=== PATIENT | female | born 1955 | race African-American/Black ===

== ENCOUNTER 2020-02-28 06:32 | Day surgery (SDC) | payer OTHER ==
[2020-02-27 16:21] LABS: Basophils % 0.4 % (0-1.3); Hematocrit 36.9 % (36.0-45.0); Lymphocytes % 29.5 % (15.3-44.8); MPV 8.1 fL (7.6-11.3); RBC Red Blood Cell Count 4.25 M/uL (3.86-4.86)
--- NOTE | 2020-02-27 16:30 | RAD REPORT ---
EXAM DESCRIPTION: Sandhya Kinsey And Freddy (2 Views)02/27/2020 4:12 pm CLINICAL HISTORY: preop COMPARISON: None FINDINGS: The lungs appear clear of acute infiltrate. The heart is normal size IMPRESSION: No acute abnormalities displayed
[~2020-02-28 06:32] MED LIST: CEFAZOLIN/SWI 1gm 1 GM/10 ML SYR IVP SCH
--- OUTSIDE RECORDS SUMMARY | 2020-02-28 06:35 | XMS REPORT | Summary of Care ---
:1955 Author Organization [facility] - Health Address [address] [place] [address] Care Team Providers Name Role Phone MD Federico Primary Care Provider Reason for Visit Auth/Cert Status Reason Specialty Diagnoses / Procedures Referred By [place]ble ontact Referred To Contact Surgery Procedures Adc Pre/Pacu/Post [facility] CODING [facility]P [address] [place] [address] LAP,[place] [address] CHOLECYSTECTOMY [address] - [place] Fax: LAP,CHOLECYSTECTOMY Encounter Details Date Type Department Care Team Description 01/03/2020 Hospital Encounter [facility] [address] [place] [address] Dr martínez [address] [place] [address] [address] [place] [phone] Allergies No Known Allergiesdocumented as of this encounter (statuses as of 01/03/2020) Medications Medication Sig Dispensed Refills Start Date End Date Status losartan 100 mg Take 100 mg by 0 Active tabletIndications: 1/2 mouth daily. in am 1/2 in pm Indications: 1/2 in am 1/2 in pm carvediloL 6.25 mg Take 6.25 mg by 0 Active tabletIndications: 1/2 mouth 2 (two) in am and 1/2 pm times daily with meals. Indications: 1/2 in am and 1/2 pm Pantoprazole 40 mg Take 40 mg by 0 Active delayed-release mouth daily. suspension acetaminophen (TYLENOL) Take by mouth 0 Active 325 mg tablet every 6 (six) hours as needed (as needed). acetaminophen-codeine Take 1 tablet 28 tablet 0 01/03/2020 Active 300-30 mg by mouth every tabletIndications: 4 (four) hours acute pain as needed for Pain (scale 4-6) or Pain (scale 7-10) for up to 7 days. Indications: acute pain documented as of this encounter (statuses as of 01/03/2020) Active Problems Not on filedocumented as of this encounter (statuses as of 01/03/2020) Social History Tobacco Use Types Packs/Day Years Used Date Never Smoker Smokeless Tobacco: Never Used Sex Assigned at Date Recorded Not on file Job Start Date Occupation Industry Not on file Not on file Not on file Travel History Travel Start Travel End No recent travel history available. COVID-19 Exposure Response Date Recorded In the last month, have you been in contact with No / Unsure 01/02/2020 10:00 AM CDT someone who was confirmed or suspected to have Coronavirus / COVID-19? documented as of this encounter Last Filed Vital Signs Vital Sign Reading Time Taken Comments Blood Pressure 140/82 01/03/2020 10:47 AM CDT Pulse 62 01/03/2020 10:47 AM CDT Temperature 36.8 C (98.2 F) 01/03/2020 10:10 AM CDT Respiratory Rate 16 01/03/2020 10:47 AM CDT Oxygen Saturation 98% 01/03/2020 10:47 AM CDT Inhaled Oxygen Concentration - - Weight 71.7 kg (158 lb) 01/01/2020 12:00 PM CDT Height 165.1 cm (5' 5") 01/01/2020 12:00 PM CDT Body Mass Index 26.29 01/01/2020 12:00 PM CDT documented in this encounter Discharge Instructions AttachmentsThe following attachments cannot be sent through Care Everywhere. Cholecystectomy (Icelandic)documented in this encounter Plan of Treatment Name Type Priority Associated Diagnoses Order S chedule EKG-12 LEAD ROUTINE HEART STATION STAT ONCE fo r 1 Occurrences sta rting 01/03/2020 unti l 01/03/2020 SURGICAL PATHOLOGY LAB Routine ONCE for 1 EXAM Occurrences sta rting 01/03/2020 Health Maintenance Due Date Last Done Comments HEPATITIS C (HCV) SCREEN 1955 DTaP,Tdap,and Td Vaccines (1 - 1968 Tdap) COLONOSCOPY 2007 Zoster Recombinant Vaccine 2007 (SHINGRIX) (1 of 2) Breast Cancer Screening 12/16/2009 12/16/2008 (MAMMOGRAM) PAP SMEAR 11/19/2011 11/18/2008 INFLUENZA VACCINE (#1) 2020 Depression Screening 01/02/2021 01/03/2020 PNEUMOCOCCAL 0-64 YEARS COMBINED Aged Out No longer eligible based on SERIES patient's age to complete this topic documented as of this encounter Procedures Procedure Name Priority Date/Time Associated Comments Diagnosis EKG-12 LEAD Routine 01/03/2020 6:45 AM CDT CBC WITH DIFF STAT 01/03/2020 6:32 AM Results for this CDT procedure are i n the results section. BASIC METABOLIC STAT 01/03/2020 6:31 AM Resul ts for this PANEL (NA, K, CL, CDT procedure are in CO2, GLUCOSE, BUN, the resul ts CREATININE, CA) section. HEPATIC FUNCTION STAT 01/03/2020 6:31 AM Resu lts for this PANEL (62260) CDT procedure are in (ALB,T.PRO,BILI the results T,BU/BC,ALT,AST,ALK section. PHOS) LIPASE STAT 01/03/2020 6:31 AM Results for this CDT procedure are i n the results section. AMYLASE STAT 01/03/2020 6:31 AM Results for this CDT procedure are i n the results section. CONSENT/REFUSAL FOR Routine 01/02/2020 9:58 AM DIAGNOSIS AND CDT TREATMENT ASSIGNMENT OF Routine 01/02/2020 9:58 AM BENEFITS CDT DSU PRE-OP Routine 12/31/2019 12:01 AM CDT documented in this encounter Results CBC WITH DIFF (01/03/2020 6:32 AM CDT) Pathologist Sig nature WBC 6.96 4.30 - 11.10 [facility] 10*3/L [facility] RBC 4.29 3.93 - 5.25 [facility] 10*6/L [facility] HGB 13.0 11.6 - 15.0 [facility] g/dL [facility] HCT 35.5 (L) 35.7 - 45.2 % [facility] MCV 82.8 80.6 - 95.5 fL [facility] MCH 30.3 25.9 - 32.8 pg [facility] MCHC 36.6 (H) 31.6 - 35.1 [facility] g/dL [facility] RDW-SD 39.2 39.0 - 49.9 fL [facility] RDW-CV 13.1 12.0 - 15.5 % [facility] PLT 307 166 - 358 [facility] 10*3/L [facility] MPV 9.4 (L) 9.5 - 12.9 fL [facility] NRBC/100 WBC 0.0 0.0 - 10.0 /100 [facility] WBCs [facility] NRBC x10^3 <0.01 10*3/L [facility] GRAN MAT (NEUT) % 63.2 % [facility] IMM GRAN % 0.10 % [facility] LYMPH % 25.4 % [facility] MONO % 10.2 % [facility] EOS % 1.0 % [facility] BASO % 0.1 % [facility] GRAN MAT x10^3(ANC) 4.39 1.88 - 7.09 [facility] 10*3/uL [facility] IMM GRAN x10^3 <0.03 0.00 - 0.06 [facility] 10*3/uL [facility] LYMPH x10^3 1.77 1.32 - 3.29 [facility] 10*3/uL [facility] MONO x10^3 0.71 0.33 - 0.92 [facility] 10*3/uL [facility] EOS x10^3 0.07 0.03 - 0.39 [facility] 10*3/uL [facility] BASO x10^3 <0.03 0.01 - 0.07 [facility] 10*3/uL [facility] Specimen Blood - ARM, LEFT Performing Organization Address City/State/Zipcode Phone Number [facility] CLIA: [id number], [address] [place], [place] [address] LIPASE (01/03/2020 6:31 AM CDT) Pathologist [facility] nature LIPASE 93 0 - 220 U/L [facility] Specimen Blood - ARM, LEFT Performing Organization Address [facility] Phone Number [facility] CLIA: [id number], [address] [place] [address] AMYLASE (01/03/2020 6:31 AM CDT) Pathologist Sig nature KRISTOFRE 103 35 - 110 U/L [facility] Specimen Blood - ARM, LEFT Performing Organization Address [facility] Phone Number [facility] CLIA: [id number], [address] [place] [address] HEPATIC FUNCTION PANEL ([id number]) (ALB,T.PRO,BILI T,BU/BC,ALT,AST,ALK PHOS) (01/03/2020 6:31 AM CDT) Pathologist Sig [facility] TOTAL BILI 0.6 0.1 - 1.1 mg/dL [facility] BILI UNCON 0.7 0.1 - 1.1 mg/dL [facility] BILI CONJ 0.0 0.0 - 0.3 mg/dL [facility] T PROTEIN 7.4 6.3 - 8.2 g/dL [facility] ALBUMIN 4.5 3.5 - 5.0 g/dL [facility] ALK PHOS 59 34 - 122 U/L [facility] ALTv 14 5 - 35 U/L [facility] AST(SGOT) 24 13 - 40 U/L [facility] Specimen Blood - ARM, LEFT Performing Organization Address [facility] Phone Number [facility] CLIA: [id number], [address] [place] [address] BASIC METABOLIC PANEL (NA, K, CL, CO2, GLUCOSE, BUN, CREATININE, CA) (01/03/2020 6:31 AM CDT) Pathologist Sig nature NA 141 135 - 145 mmol/L [facility] K 3.7 3.5 - 5.0 mmol/L [facility] CL 106 98 - 108 mmol/L [facility] CO2 TOTAL 28 23 - 31 mmol/L [facility] AGAP 7 2 - 16 [facility] BUN 18 7 - 23 mg/dL [facility] GLUCOSE 109 70 - 110 mg/dL [facility] CREATININE 0.96 0.50 - 1.04 [facility] mg/dL [facility] CALCIUM 9.6 8.6 - 10.6 mg/dL [facility] eGFR Calculation 58.9 mL/min/1.73m2 [facility] (Non-) [facility] eGFR Calculation 71.4 mL/min/1.73m2 [facility] () [facility] Specimen Blood - ARM, LEFT Narrative Performed At Association of Glomerular Filtration Rate (GFR) [facility] and Staging of Kidney Disease* + + +- + | GFR (mL/min/1.73 m2) | With Kidney Damage | Without Kidney Damage + + +- + | >90 | Stage one | Normal + + +- + | 60-89 | Stage two | Decreased GFR + + +- + | 30-59 | Stage three | Stage three + + +- + | 15-29 | Stage four | Stage four + + +- + | <15 (or dialysis) | Stage five | Stage five + + +- + *Each stage assumes the associated GFR level has been in effect for at least three months. Stages 1 to 5, with or without kidney disease, indicate chronic kidney disease. Notes: Determination of stages one and two (with eGFR >59mL/min/1.73 m2) requires estimation of kidney damage for at least three months as defined by structural or functional abnormalities of the kidney, manifested by either: Pathological abnormalities or Markers of kidney damage (including abnormalities in the composition of the blood or urine or abnormalities in imaging tests). Performing Organization Address City/State/Zipcode Phone Number [facility] CLIA: [id number], [address] [place], [place] [address] documented in this encounter Visit Diagnoses Diagnosis Cholecystitis - Primary Cholecystitis, unspecified documented in this encounter Administered Medications Medication Order MAR Action Action Date Dose Rate Site bupivacaine (preserv free) Given 01/03/2020 8:19 AM CDT 30 mL Abdomen 0.5% (SENSORCAINE MPF) 0.5 % (5 mg/mL) injection PRN, Starting Sandra 01/03/20 at 0819, Until Discontinued, Routine, Intra-op ceFAZolin (ANCEF) 1,000 mg in NaCl 0.9% (NS) 50 mL MINI-BAG 1,000 mg, IV Piggyback, O.R. HOLDING ONC E, 1 dose, Starting [facility] 01/03/20 at 0611, Until Discontinued, 50 mL, DSU Pre-op, Reason for Anti -Infective: Surgical Prophylaxis, Surgical Prophylaxis: Abdom inal, Duration of therapy: within 24 hours of surgery HYDROcodone-acetaminophen (NORCO 5) 5-32 5 mg tablet 1 tablet 1 tablet, Oral, PRN, 1 dose, Starting Sandra 01/03/20 at 0 921, Until Discontinued, Routine, Pain (scale 1-3), DSU Recovery HYDROcodone-acetaminophen (NORCO 5) 5-32 5 mg tablet 1 tablet 1 tablet, Oral, PRN, 1 dose, Starting [facility] 01/03/20 at 0 921, Until Discontinued, Routine, Pain (scale 4-6), DSU Recovery HYDROcodone-acetaminophen (NORCO) 10-325 mg tablet 1 tablet 1 tablet, Oral, PRN, 1 dose, Starting [facility] 01/03/20 at 0 921, Until Discontinued, Routine, Pain (scale 7-10), DSU Recovery HYDROmorphone (DILAUDID) injection 0.2 m g Given 01/03/2020 9:54 AM CDT 0.2 mg 0.2 mg, Slow IV Push, Q5MIN PRN, 10 doses, Starting [facility] 01/03/20 at 0903, Until Discontinued, Routine, Pain (scale 7-10), PACU, Use approved by (Faculty): PACU USE -ANESTHESIA SERVICE-HYDROMORPHONE INJECTIONS lactated ringers IV infusion 1,000 mL at 75 mL/hr, 1,000 mL, IV Infusion, CONT INUOUS, Starting Sandra 01/03/20 at 0915, Until Discontinued, Routine, PACU NaCl 0.9% (NS) IV infusion 1,000 New Bag 01/03/2020 6:35 AM C DT 1,000 mL 50 mL/hr mL at 50 mL/hr, IV Infusion, CONTINUOUS, Starting Sandra 01/03/20 at 0615, Until Discontinued, Routine, DSU Pre-op ondansetron (ZOFRAN (PF)) injection 4 mg 4 mg, Slow IV Push, PRN, 1 dose, Startin g [facility] 01/03/20 at 0903, Until Discontinued, Routine, Nausea and Vomiting (N/V), PACU sodium chloride 0.9 % irrigation solutio n Given 01/03/2020 8:38 AM CDT 1,000 mL PRN, Starting Sandra 01/03/20 at 0819, Until Discontinued, Intra-op Given 01/03/2020 8:19 AM CDT 1,000 mL Medication Order MAR Action Action Date Dose Rate Site FENTanyl PF (SUBLIMAZE (PF)) Given 01/03/2020 9:39 AM CDT 25 mc g injection 25 mcg 25 mcg, Slow IV Push, Q5MIN PRN, 4 doses, Starting Sandra 01/03/20 at 0903, Until Sandra 01/03/20 at 0939, Routine, Pain (scale 4-6), PACU Given 01/03/2020 9:34 AM CDT 25 mcg Given 01/03/2020 9:20 AM CDT 25 mcg documented in this encounter Insurance Payer Benefit Plan / Subscriber ID Effective Phone Address T e Group Dates [facility] [id number] 2019-[facility] [phone] [address] [employer] [facility] nt [phone] [place] [address] Guarantor Name Account Type Relation to Date of Phone Billing Address Patient StephenMaribell Personal/Famil Self 1955 [address] (Home) [place] [address] documented as of this encounter
--- OUTSIDE RECORDS SUMMARY | 2020-02-28 06:35 | XMS REPORT | Summary of Care ---
:1955 Author Organization [facility] Address [address] [place] [address] Care Team Providers Name Role Phone MD Federico Primary Care Provider Reason for Visit Reason Comments LAB WORK Auth/Cert Status Reason Specialty Diagnoses / Referred By Referred To Procedures Contact Contact Clinical Medical Diagnoses COVID-19 [facility] Lab Laboratory Procedures COVID PREOP [address] [place] [address] Encounter Details Date Type Department Care Team Description 01/02/2020 Laboratory Only [facility] Preet Cameron MD [address] [facility] [address] [place] [address] Pre-operative Phlebotomy Only, [facility] Test clearance (Primary Dx) [facility] [address] [place] [address] Allergies No Known Allergiesdocumented as of this encounter (statuses as of 01/02/2020) Medications Medication Sig Dispensed Refills Start Date [...] 6 (six) hours as needed (as needed). documented as of this encounter (statuses as of 01/02/2020) Active Problems Not on filedocumented as of this encounter (statuses as of 01/02/2020) Social History Tobacco Use Types Packs/Day Years [...] of this encounter Last Filed Vital Signs Not on filedocumented in this encounter Plan of Treatment Date Type Specialty Care Team Description 01/03/2020 Hospital Encounter Surgery Jose Luis Cameron MD [address] [place] [address] 01/03/2020 Anesthesia Event Surgery Charlie Cordero C [address] [phone] 01/03/2020 Surgery Surgery Preet Cameron MD LAPAROSCOPIC [address] JOSE C [address] [place] [address] Name Type Priority Associated Diagnoses Order S chedule COVID-19 (ID NOW RAPID LAB Routine Pre-operative wilfrido castelan Expected: 01/02/2020, TESTING) Expires: 2020 Health Maintenance Due Date Last Done Comments HEPATITIS C (HCV) SCREEN 1955 DTaP,Tdap,and Td Vaccines (1 - 1968 Tdap) Depression Screening 1969 COLONOSCOPY 2007 Zoster Recombinant Vaccine 2007 (SHINGRIX) (1 of 2) Breast Cancer Screening 12/16/2009 12/16/2008 (MAMMOGRAM) PAP SMEAR 11/19/2011 11/18/2008 INFLUENZA VACCINE (#1) 2020 PNEUMOCOCCAL 0-64 YEARS COMBINED Aged Out No longer eligible based on SERIES patient's age to complete this topic documented as of this encounter Results Not on filedocumented in this encounter Visit Diagnoses Diagnosis Pre-operative clearance - Primary Preoperative examination, unspecified documented in this encounter Additional Health Concerns Infection Onset Date Last Indicated Resolved Time COVID-19 Rule Out 01/02/2020 01/02/2020 documented as of this encounter Insurance Payer Benefit Plan / Subscriber ID Effective Phone Address T e Group Dates [facility] [id number] 2019-[facility] [phone] [address] [employer] [place] [phone] [place] [address] Guarantor Name Account Type Relation to Date of Phone Billing Address Patient Maribell Mitchell Personal/Famil Self 1955 [address] (Home) [place] [address] documented as of this encounter
--- OUTSIDE RECORDS SUMMARY | 2020-02-28 06:35 | XMS REPORT | Continuity of Care Document ---
:1955 Author Organization [facility] t Address [address] [place] [address] Care Team Providers Name Role Phone Doctor Unassigned, [place] Attending Clinician Unavailable Rakesh JONES Attending Clinician Only, Test Attending Clinician Unavailable Rakesh JONES Admitting Clinician Problems This patient has no known problems. Allergies, Adverse Reactions, Alerts This patient has no known allergies or adverse reactions. Medications This patient has no known medications. Procedures This patient has no known procedures. Encounters Start End Encounter Admission Attending Care Care Encounter Source Date/Time Date/Time Type Type Clinicians Facility Department ID 2020-01-11 2020-01-11 Orders Doctor CASAREZ [id number] 00:00:00 00:00:00 Only UnassLUIS ENRIQUE wolfe [id number] [place] [facility] [id number] 2020-01-03 2020-01-03 [facility] QIANA Cameron [id number] 06:04:40 11:10:00 Encounter Preet Devine [id number] [place] [id number] [facility] [id number] [place] 071 2020-01-02 2020-01-02 Laboratory Only, [facility] [id number] 10:00:51 10:15:51 Only Test [place] [id number] [place] [id number] [place] [id number] Results This patient has no known results.
--- OUTSIDE RECORDS SUMMARY | 2020-02-28 06:35 | XMS REPORT | Summary of Care ---
:1955 Author Organization [facility] Address [address] [place] [address] Care Team Providers Name Role Phone MD Federico Primary Care Provider Reason for Visit Reason Comments LAB WORK Auth/Cert Status Reason Specialty Diagnoses / Referred By Referred To Procedures Contact Contact Clinical Medical Diagnoses COVID-19 [facility] Lab Laboratory Procedures COVID PREOP [address] [place] [address] Encounter Details Date Type Department Care Team Description 01/02/2020 Laboratory Only [facility] Preet Cameron MD [address] [facility] [address] [place] [address] Pre-operative Phlebotomy Only, [facility] Test clearance (Primary Dx) [facility] [address] [place] [address] Allergies No Known Allergiesdocumented as [...] [address] JOSE C ORTI[address] [place] [address] 01/03/2020 Anesthesia Event Surgery Charlie Cordero C [address] [phone] 01/03/2020 Surgery Surgery Preet Cameron MD LAPAROSCOPIC [address] JOSE C [address] [place] [address] [phone] Name Type Priority Associated Diagnoses Date/Ti me COVID-19 (ID NOW RAPID LAB Routine Pre-operative wilfrido flip 01/02/2020 10:21 AM CDT TESTING) Name Type Priority Associated Diagnoses Order S chedule COVID-19 (ID NOW RAPID LAB Routine Pre-operative wilfrido flip Expected: 01/02/2020, TESTING) Expires: 2020 Health Maintenance [...] / Subscriber ID Effective Phone Address T ype Group Dates [facility] [id number] 2019-[facility] [phone] [employer] [place] [facility] [phone] [place] [address] Guarantor Name Account Type Relation to Date of Phone Billing Address Patient Maribell Mitchell Personal/Famil Self 1955 [address] (Home) [place] [address] documented as of this encounter
--- OUTSIDE RECORDS SUMMARY | 2020-02-28 06:35 | XMS REPORT | Summary of Care ---
:1955 Author Organization [facility] - Health Address [address] [place] [address] Care Team Providers Name Role Phone MD Federico Primary Care Provider Encounter Details Date Type Department Care Team Description 01/11/2020 Orders Only [facility] Doctor Unassigned, No [address] [facility] [place] [address] [address] [place] [address] Allergies No Known Allergiesdocumented as of this encounter (statuses as of 01/15/2020) Medications Medication Sig Dispensed Refills Start Date [...] as of this encounter (statuses as of 01/15/2020) Active Problems Not on filedocumented as of this encounter (statuses as of 01/15/2020) Social History Tobacco Use Types Packs/Day Years Used Date Never Smoker Smokeless Tobacco: Never Used Sex Assigned at Date Recorded Not on file COVID-19 Exposure Response Date Recorded In the last month, have you been in contact with No / Unsure 01/02/2020 10:00 AM CDT someone who was confirmed or suspected to have Coronavirus / COVID-19? documented as of this encounter Last Filed Vital Signs Not on filedocumented in this encounter Plan of Treatment Health Maintenance Due Date Last Done Comments [...] encounter Procedures Procedure Name Priority Date/Time Associated Diagnosis Comme nts AUTHORIZATION FOR RELEASE Routine 01/11/2020 12:01 AM OF PHI CDT documented in this encounter Results Not on filedocumented in this encounter Insurance Payer Benefit Plan / Subscriber ID Effective Phone Address T e Group Dates [facility] [id number] 2019-[place] [phone] [address] [employer] [facility] [phone] [place] [address] documented as of this encounter
[2020-02-28] MEDS ORDERED: Ringers Lactate 1,000 ML IV ONE (07:00)
[2020-02-28] MEDS ORDERED: CEFAZOLIN/SWI 1gm 1 GM/10 ML SYR ONE (07:01)
[2020-02-28] MEDS ORDERED: propofoL 200 MG/20 ML VIAL IV ONE (07:21)
[2020-02-28] MEDS ORDERED: FENTANYL CITR 100 MCG/2 ML ONE (07:21)
[2020-02-28] MEDS ORDERED: MIDAZOLAM HCL 2 MG/2 ML INJ ONE (07:22)
[2020-02-28] MEDS ORDERED: ONDANSETRON 4 MG/2 ML VIAL ONE ×2 (07:23→10:36)
[2020-02-28] MEDS ORDERED: LIDOCAINE 2% MPF 5 ML VIAL ONE (07:24)
[2020-02-28] MEDS ORDERED: EPHEDRINE SULF 50 MG/ML VIAL ONE (08:33)
--- NOTE | 2020-02-28 08:36 | P.BOP ---
Preoperative diagnosis: infected post neck and upper back subQ masses x 3 Postoperative diagnosis: same Primary procedure: 1. Excisional biopsy infected Right post neck subQ mass 3x3cm Secondary procedure: 2. Excisional biopsy infected Mid post neck subQ mass 3x3cm Other procedure(s): 3. Excisional biopsy infected upper back subQ mass 2.5x2cm Estimated blood loss: <10cc Specimen: mass x 3 Findings: as above Anesthesia: General Transferred to: Recovery Room Condition: Good
[2020-02-28] MEDS: HYDROMORPHONE HCL 1 MG/ML INJ ONE ×4 (09:17→09:32)
[2020-02-28] MEDS ORDERED: PROMETHAZINE INJ 25 MG/ML AMP ONE (11:07)
[2020-02-28] MEDS ORDERED: METOCLOPRAMIDE 10 MG/2mL INJ ONE (11:07)
[2020-02-28 13:17] VITALS: BP 139/82; TEMP 97; O2SAT 100
== END 2020-02-28 11:50 | disposition home or self-care (01) ==
LOC: OR 06:32
PROVIDERS: ATTEND Surgery
PROC: 0JB40ZZ Excision of Right Neck Subcutaneous Tissue and Fascia, Open Approach (ICD-10-PCS; principal; 2020-02-28 07:30)
PROC: 0JB70ZZ Excision of Back Subcutaneous Tissue and Fascia, Open Approach (ICD-10-PCS; 2020-02-28 07:30)
DX: L72.0 Epidermal cyst (principal); R22.1 Localized swelling, mass and lump, neck; R22.2 Localized swelling, mass and lump, trunk; I10 Essential (primary) hypertension; K21.9 Gastro-esophageal reflux disease without esophagitis; Z20.828 Contact with and (suspected) exposure to other viral communicable diseases
CPT/HCPCS: 93005; 85025; 80048; 36415; 88304; 71046; 21555; 11402; U0002; J2704; J2765; J2550; J2250; J3010; J1170 ×2; J0690; J7120; J2405 ×2; 88305